=== PATIENT | female | born 1945 | race Hispanic/Latino ===

== ENCOUNTER 2016-11-04 16:05 | Outpatient (CLI) | payer OTHER ==
--- NOTE | 2016-11-05 08:32 | Magnetic Resonance Report ---
MRI of the brain without contrast. Findings: The posterior fossa is normal. The ventricles are normal in size and contour. There are no masses or extra-axial collections. There are no areas of restricted diffusion. The devine white matter junction is normal. The there is mild cortical atrophy. The pituitary gland is normal. The visualized extracranial structures are normal. Impression: Mild atrophic changes, otherwise unremarkable study.
== END 2016-11-04 16:06 | disposition home or self-care (01) ==
LOC: MRI 16:05
PROVIDERS: ATTEND Psychiatry & Neurology Neurology
DX: G30.1 Alzheimer's disease with late onset (principal); G31.89 Other specified degenerative diseases of nervous system
CPT/HCPCS: 70551